=== PATIENT | female | born 2000 | race Caucasian/White ===

== ENCOUNTER 2019-01-22 23:36 | Emergency (ER) | payer OTHER ==
[~2019-01-22] VITALS: Ht 165.1 cm; Wt 57.7 kg
[2019-01-22 23:39] VITALS: TEMP 97
[2019-01-23] MEDS ORDERED: ZYRTEC5 MG (00:02)
[2019-01-23] MEDS ORDERED: MULTIPLE VITAMI1 CAP PO (00:03)
[2019-01-23] MEDS ORDERED: ALLEGRA 60MG TA60 MG (00:03)
[2019-01-23 01:37] LABS: HEMOGLOBIN 15.7 g/dl (12.0-15.0); MEAN CELL VOLUME 91 fl (80.0-95.0); MEAN CORPUSCULAR HEMOGLOBIN 30 pg (26.0-32.0); MEAN CORPUSCULAR HGB CONC 33 g/dl (33.0-37.0); MEAN PLATELET VOLUME 10.2 fl (7.4-10.4); PLATELET COUNT 330 K/mm3 (130-400); RED BLOOD COUNT 5.19 M/mm3 (4.10-5.30); REDCELL DISTRIBUTION WIDTH-CV 15.6 % (11.5-14.5)
[2019-01-23 01:40] LABS: ALANINE AMINOTRANSFERASE 15 U/L (9-52); ALKALINE PHOSPHATASE 214 U/L (50-136); AST,SGOT 15 U/L (15-37); BILIRUBIN,TOTAL 0.6 mg/dL (0.0-1.0); BLOOD UREA NITROGEN 11 mg/dL (7-17); CHLORIDE 112 mmol/L (98-107); CREATININE, serum 0.92 mg/dL (0.52-1.25); SODIUM 143 mmol/L (137-145); TOTAL PROTEIN 8.8 gm/dL (6.4-8.2)
[2019-01-23 01:43] LABS: GLUCOSE 476 mg/dL (74-106); POTASSIUM 2.7 mmol/L (3.4-5.0)
[2019-01-23 01:44] LABS: CARBON DIOXIDE < 5 mmol/L (22-30)
[2019-01-23 01:56] LABS: ARTERIAL BLD GAS O2 SATURATION 98.1 % (92-100); ARTERIAL BLD GAS TCO2 CT 2.5; ARTERIAL BLOOD GAS BASE EXCESS -25.9 (-2-2); ARTERIAL BLOOD GAS HCO3 2.3 meq/L (22-26); ARTERIAL BLOOD GAS PCO2 8.5 mmHg (35-45); ARTERIAL BLOOD GAS PO2 137.7 mmHg (80-100); ARTERIAL BLOOD GAS pH 7.05 (7.35-7.45)
[2019-01-23 02:04] LABS: BAND 11 % (0-10); LYMPHOCYTE 1 % (20.0-51.0); NEUTROPHILS 84 % (42.0-75.2); PLATELET ESTIMATE NORMAL (NORMAL)
[2019-01-23 02:05] LABS: ANISOCYTOSIS 1+
[2019-01-23 02:06] LABS: POLYCHROMASIA 1+
[2019-01-23 02:18] LABS: COLLECTION METHOD CLEAN CATCH
[2019-01-23 02:49] LABS: HYALINE CAST >12 /lpf; MUCOUS Present /lpf; PH 5 (5-8); URINE APPEARANCE Clear; URINE BACTERIA Rare /hpf; URINE BILIRUBIN Negative (NEGATIVE); URINE BLOOD 2+ (NEGATIVE); URINE COLOR Straw; URINE GLUCOSE 3+ (NEGATIVE); URINE KETONE 2+ (NEGATIVE); URINE LEUKOCYTE ESTERASE Negative (NEGATIVE); URINE NITRATE Negative (NEGATIVE); URINE PROTEIN(semi-quant) 2+ (NEGATIVE); URINE RBC 0-2 /hpf; URINE UROBILINOGEN Negative (NEGATIVE)
[2019-01-23 03:00] VITALS: BP 102/67; PULSE 122
== END 2019-01-23 03:00 | disposition short-term general hospital (02) ==
LOC: COL.ER 23:36
PROVIDERS: Emergency Medicine; Nurse Practitioner
DX: E10.10 Type 1 diabetes mellitus with ketoacidosis without coma (principal); G43.909 Migraine, unspecified, not intractable, without status migrainosus
CPT/HCPCS: J1815; J2405; J3480; J7030; Q9967

== ENCOUNTER 2021-02-13 18:54 | Emergency (ER) | payer OTHER ==
[~2021-02-13] VITALS: Ht 165.1 cm; Wt 79.5 kg
[~2021-02-13 18:54] MED LIST: ALLEGRA 60MG TA60 MG; MULTIPLE VITAMI1 CAP PO; ZYRTEC5 MG
[2021-02-13 18:59] VITALS: TEMP 97.9
[2021-02-13 20:56] LABS: BASO % 0.2 % (0.0-2.0); GRAN # 11.4 (1.4-6.5); GRAN % 88.1 % (42.2-75.2); HEMATOCRIT 40.2 % (37.0-47.0); HEMOGLOBIN 13.2 g/dl (12.5-16.0); LYMPH % 7.7 % (20.0-51.0); MEAN CELL VOLUME 89 fl (80.0-100.0); MEAN CORPUSCULAR HEMOGLOBIN 29 pg (27.0-31.0); MEAN CORPUSCULAR HGB CONC 33 g/dl (33.0-37.0); MEAN PLATELET VOLUME 9.1 fl (7.4-10.4); MONO # 0.4 (0.1-0.6); MONO % 3.3 % (1.7-9.3); PLATELET COUNT 345 K/mm3 (130-400); RED BLOOD COUNT 4.54 M/mm3 (4.10-5.30)
[2021-02-13 21:16] LABS: COLLECTION METHOD CLEAN CATCH
[2021-02-13 21:24] LABS: MUCOUS Present /lpf; PH 6 (5-8); URINE APPEARANCE Hazy; URINE BACTERIA None Seen /hpf; URINE BILIRUBIN Negative (NEGATIVE); URINE BLOOD 3+ (NEGATIVE); URINE COLOR Yellow; URINE GLUCOSE Negative (NEGATIVE); URINE KETONE 2+ (NEGATIVE); URINE LEUKOCYTE ESTERASE Negative (NEGATIVE); URINE NITRATE Negative (NEGATIVE); URINE PROTEIN(semi-quant) 2+ (NEGATIVE); URINE RBC >50 /hpf; URINE UROBILINOGEN Negative (NEGATIVE)
[2021-02-13] MEDS ORDERED: TYLENOL 325MG325 MG PO (21:43)
[2021-02-13] MEDS ORDERED: ZOFRAN ODT4 MG PO (21:43)
[2021-02-13 21:58] VITALS: BP 126/77; PULSE 68
== END 2021-02-13 21:58 | disposition home or self-care (01) ==
LOC: COL.ER 18:54
PROVIDERS: Emergency Medicine; Family Medicine
DX: R11.2 Nausea with vomiting, unspecified (principal)
CPT/HCPCS: J2405; J7120